=== PATIENT | female | born 1975 | race African-American/Black ===

== ENCOUNTER 2016-04-28 01:05 | Emergency (ER) | payer OTHER ==
[~2016-04-28] VITALS: Ht 162.6 cm; Wt 68.0 kg
[2016-04-28 01:41] LABS: PLATELET COUNT 335 K/uL (152-353)
[2016-04-28 01:56] LABS: POTASSIUM 3.7 mmol/L (3.6-5.2); SODIUM 135 mmol/L (136-145)
[2016-04-28 03:29] VITALS: BP 100/65; TEMP 97.7
== END 2016-04-28 03:31 | disposition home or self-care (01) ==
LOC: ED 01:05
DX: R07.89 Other chest pain (principal); K29.70 Gastritis, unspecified, without bleeding; B96.81 Helicobacter pylori [H. pylori] as the cause of diseases classified elsewhere; I45.10 Unspecified right bundle-branch block
CPT/HCPCS: 80053; 82550; 84484; 85027; 86318; 93005; 99284

== ENCOUNTER 2016-06-24 00:11 | Observation (INO) | payer OTHER ==
[2016-06-24] VITALS (7 sets, daily range): BP systolic 99–127; BP diastolic 49–73; TEMP 97.8–98.3; Ht 154.9 cm; Wt 68.9 kg
[~2016-06-24] VITALS: Ht 154.9 cm; Wt 68.9 kg
[2016-06-24 00:45] LABS: PLATELET COUNT 334 K/uL (152-353)
[2016-06-24 00:51] LABS: POTASSIUM 3.5 mmol/L (3.6-5.2); SODIUM 140 mmol/L (136-145)
[2016-06-24 10:26] LABS: PARTIAL THROMBOPLASTIN TIME 28.3 SECONDS (24.5-33.6)
[2016-06-25] VITALS: BP 97/48; TEMP 97.9
[2016-06-25 04:00] VITALS: BP 92/52; TEMP 97.9
[2016-06-25 06:21] LABS: PLATELET COUNT 337 K/uL (152-353)
[2016-06-25 08:00] VITALS: BP 100/57; TEMP 97.2
[2016-06-25 08:19] LABS: POTASSIUM 3.9 mmol/L (3.6-5.2); SODIUM 135 mmol/L (136-145)
[2016-06-25 11:34] VITALS: BP 110/63; TEMP 98.4
== END 2016-06-25 15:05 | disposition home or self-care (01) ==
LOC: ED 00:11 → MED/SURG 01:20
PROVIDERS: Emergency Medicine
DX: R07.89 Other chest pain (principal); K21.9 Gastro-esophageal reflux disease without esophagitis; R10.13 Epigastric pain; R10.11 Right upper quadrant pain
CPT/HCPCS: 36415; 80053; 80061; 82150; 82550; 83690; 83735; 84484; 85027; 85610; 85730; 93005; 96372; 99220; 99284; G0378; J1650; Q9963